=== PATIENT | female | born 1940 | race Caucasian/White ===

== ENCOUNTER 2016-09-07 09:53 | Day surgery (SDC) | payer OTHER, MEDICARE ==
[2016-09-07] MEDS ORDERED: diphenhydrAMINE 25 MG CAP PO ONE (09:56)
[2016-09-07] MEDS ORDERED: DIAZEPAM 5 MG TAB PO ONE (09:56)
[2016-09-07] MEDS ORDERED: NS 1,000 ML IV ONE (09:56)
[2016-09-07] MEDS ORDERED: BACITRACIN IRRIGATION/NS 50,000 UNITS/1,000 ML BTL IRR ONE (09:56)
[2016-09-07] MEDS ORDERED: VANCOMYCIN HCL/NORMAL SALINE 250 ML IV ONE (10:30)
--- NOTE | 2016-09-07 10:37 | CPEKG ---
Heart Rate: 59 RR Interval: 1017 P-R Interval: 301 QRSD Interval: 150 QT Interval: 464 QTC Interval: 460 P [place]: 80 QRS [place]: 193 T Wave [place]: 79 EKG Severity - ABNORMAL ECG - EKG Impression: Atrial sensing ventricular pacing Electronically Signed By: Manoj Polk 07-Sep-2016 16:48:32
[2016-09-07 10:53] LABS: % IMMATURE GRANULYOCYTES 0.4 % (0.0-1.1); ABSOLUTE IMMATURE GRANULOCYTES 0.02 10^3/uL (0.00-0.10); ADD DIFF? NO; ADD MORPH? NO; ADD SCAN? NO; ATYPICAL LYMPHOCYTE FLAG 0 (0-99); FRAGMENT RBC FLAG 10 (0-99); HEMATOCRIT 37.4 % (38.0-47.0); HEMOGLOBIN 12.7 g/dL (12.6-16.3); LEFT SHIFT FLG 0 (0-99); LIPEMIA HEMOLYSIS FLAG 90 (0-99); MEAN CELL HEMOGLOBIN 29.5 pg (27.9-34.1); MEAN PLATELET VOLUME 8.9 fL (8.7-11.7); PLATELET CLUMPS FLAG 0 (0-99); PLATELET COUNT 309 10^3/uL (150-400); RED CELL DISTRIBUTION WIDTH 13.2 % (11.5-15.2)
[2016-09-07 11:03] LABS: INR 1.01 (0.83-1.16); PROTIME(PATIENT) 13.2 SEC (12.0-15.0)
[2016-09-07] MEDS ORDERED: LIDOCAINE 1% 300 MG/30 ML SDV ONE (11:03)
[2016-09-07] MEDS ORDERED: MIDAZOLAM 2 MG/2 ML VIAL ONE ×2 (11:04→12:09)
[2016-09-07] MEDS ORDERED: BUPIVACAINE 0.5% 30 ML SDV ONE (11:04)
[2016-09-07] MEDS ORDERED: LIDO/EPI 1% **for epidural** 30 ML SDV ONE ×2 (11:04→12:09)
[2016-09-07] MEDS ORDERED: fentaNYL 100 MCG/2 ML INJ ONE (11:04)
[2016-09-07 11:22] LABS: ANION GAP 10 mEq/L (8-16); CALCIUM 9.9 mg/dL (8.5-10.4); CARBON DIOXIDE 25 mEq/l (22-31); CHLORIDE 101 mEq/L (97-110); CREATININE 0.9 mg/dL (0.6-1.0); GLOMERULAR FILTRATION RATE > 60; GLUCOSE 105 mg/dL (70-100); POTASSIUM 4.3 mEq/L (3.5-5.2); SODIUM 136 mEq/L (134-144)
--- NOTE | 2016-09-07 14:10 | CPIP ---
[f rep st] INVASIVE CARDIAC PROCEDURE DATE OF PROCEDURE: 09/07/2016 PROCEDURE: Pulse generator change. The explanted device is a [employer] XL [id number], (serial #[id number]). Date of implant was 03/16/2009. The new device is a [employer], model #XT5130 (serial #[id number]). COMPLICATIONS: None. INDICATION FOR THE PROCEDURE: Initially was complete heart block. Indication today is for device a t end-of-life and needs to be replaced. Patient is pacemaker dependent. PROCEDURE IN DETAIL: After informed consent was obtained and n.p.o. status was confirmed, the patie nt was taken to the cardiac catheterization laboratory in the fasting state. The region of the left subclavicular fossa was cleaned, prepped, and draped in a sterile fashion. Approximately 20 cc of 1% lidocaine was utilized for local anesthesia. Sharp and blunt dissection was used to expose the o riginal device. The device was reprogrammed with a wand to a DOO mode; but, in spite of that, there was interference and evidence of complete heart block without ventricular capture. This resulted i n a requirement for us to briefly pace the patient externally with the external patches in place. W e confirmed the presence of a pulse during that time frame. The device was immediately removed from the pocket. The set screw was backed off several turns. The ventricular lead was immediately maria l eldon and placed onto the alligator clips, which had been previously programmed to 5 mV of output, wit h subsequent return of capture on the ventricular lead. The new device was brought to the table. T he lead was disconnected from the alligator clips and analyzer, and placed directly into the lower p ole lead housing of the device. The set screw was firmly applied. The atrial lead was then disconn ected from the old device, and the old device was removed from the table. The atrial lead was checke d and found to have a capture threshold 0.75 V at 0.5 msec, sensing 3.2 mV R waves, with a lead impe dance of 310 ohms. We did manipulate the atrial lead with it connected to the analyzer, and we were unable to reproduce any atrial lead noise. The atrial lead was then placed in the upper pole lead housing of the new device and the set screw firmly applied. Device was placed into the pocket after it was thoroughly flushed and checked for bleeders. D Stat was placed in the pocket to reduce ooze , as well as lidocaine with epinephrine. Local pressure was held and applied. The skin was then cl osed with 3-layered 2-0 and 3-0 Vicryl repair with excellent wound edge apposition and hemostasis. The patient tolerated the procedure well without immediate complication, and was returned to the pos t cath recovery unit in good stable condition. She should be able to be discharged to home a little later today unless complications are noted during her stay here. FINAL IMPRESSION: Successful pulse generator change with no evidence of problems with either the at rial or ventricular lead when connected to the analyzer directly via the alligator clips. /[id number]/MODL
== END 2016-09-07 15:40 | disposition home or self-care (01) ==
LOC: FCATH 09:53
PROVIDERS: ATTEND Internal Medicine Cardiovascular Disease
PROC: 0JH60XZ Insertion of Tunneled Vascular Access Device into Chest Subcutaneous Tissue and Fascia, Open Approach (ICD-10-PCS; principal; 2016-09-07)
PROC: 0JPT0PZ Removal of Cardiac Rhythm Related Device from Trunk Subcutaneous Tissue and Fascia, Open Approach (ICD-10-PCS; principal; 2016-09-07)
DX: Z45.010 Encounter for checking and testing of cardiac pacemaker pulse generator [battery] (principal); I44.2 Atrioventricular block, complete; Z88.0 Allergy status to penicillin; Z88.2 Allergy status to sulfonamides
CPT/HCPCS: 33228; 92953; 93005; A4649; C1785; J2250; J3010; J3370

== ENCOUNTER → 2016-10-22 | Outpatient (CLI) | payer OTHER, MEDICARE | LOC: BHFA 14:00 | PROVIDERS: ATTEND Internal Medicine Cardiovascular Disease | DX: I34.0 Nonrheumatic mitral (valve) insufficiency (principal); I25.10 Atherosclerotic heart disease of native coronary artery without angina pectoris ==

== ENCOUNTER → 2016-10-29 | Outpatient (CLI) | payer OTHER, MEDICARE | LOC: FIMAGING 14:20 | PROVIDERS: ATTEND Internal Medicine | DX: Z12.31 Encounter for screening mammogram for malignant neoplasm of breast (principal) | CPT/HCPCS: G0202 ==

== ENCOUNTER → 2017-11-06 | Outpatient (CLI) | payer OTHER, MEDICARE | DX: N60.01 Solitary cyst of right breast (principal) ==

== ENCOUNTER → 2017-12-16 | Outpatient (CLI) | payer OTHER, MEDICARE | LOC: BHFA 13:15 | PROVIDERS: ATTEND Internal Medicine Cardiovascular Disease | DX: I34.0 Nonrheumatic mitral (valve) insufficiency (principal) ==